=== PATIENT | female | born 1990 | race African-American/Black ===

== ENCOUNTER 2019-09-27 09:11 | Emergency (ER) | payer MEDICAID ==
[~2019-09-27] VITALS: Ht 160 cm; Wt 80.1 kg
[2019-09-27 10:03] LABS: MICROSCOPIC NOT IND
--- NOTE | 2019-09-27 10:17 | NUR ---
THIS IS A 29 YO FEMALE WHO PRESENTS TO THE ER C/O NAUSEA X 2 WEEKS WITH LOWER ABD CRAMPING AND BILAT BREAST SORENESS. PT REPROTS SHE IS 2.5 WEEKS LATE FOR HER PERIOD. PER PT, HER MENSTRUAL CYCLE IS IRREGULAR AND SHE CAN "SKIP MONTHS" BUT "I USUALLY DON'T HAVE ANY SYMPTOMS AND THAT'S HOW I KNOW I JUST WON'T HAVE ONE THAT MONTH". PT TOOK TWO NEG HOME TESTS. PT AO X 4. SKIN WARM AND DRY. RESP EVEN AND UNALBORED. PT CURRENTLY DENIES NAUSEA. BISI CISSE WAS AT BEDSIDE FOR EVAL. PT ON CONT BP AND O2 MONITORS. CALL LIGHT WITHIN REACH. WILL CONT TO MONITOR PT.
[2019-09-27 10:24] LABS: BASOPHILS # (AUTO) 0.03 x10^3/uL (0-0.1); BASOPHILS % (AUTO) 0 % (0-1); EOSINOPHILS # (AUTO) 0.17 x10^3/uL (0-0.4); EOSINOPHILS % (AUTO) 2 % (1-7); LYMPHOCYTES # (AUTO) 2.16 x10^3/uL (1-3.4); LYMPHOCYTES % (AUTO) 26 % (22-44); MD NO; MEAN CORPUSCULAR HEMOGLOBIN 33.1 pg (27.0-34.8); MEAN CORPUSCULAR HGB CONC 33.1 g/dL (32.4-35.8); MEAN CORPUSCULAR VOLUME 100.1 fL (80-100); MEAN PLATELET VOLUME 8.1 fL (7.4-10.4); MONOCYTES # (AUTO) 0.51 x10^3/uL (0.2-0.8); MONOCYTES % (AUTO) 6 % (2-9); NEUTROPHILS # (AUTO) 5.32 x10^3/uL (1.8-6.8); NEUTROPHILS % (AUTO) 65 % (42-75); PLATELET COUNT 235 x10^3/uL (130-400); RED BLOOD COUNT 4.22 x10^6/uL (3.82-5.3); RED CELL DISTRIBUTION WIDTH 12.6 % (9.6-15.2)
[2019-09-27 10:36] LABS: ALANINE AMINOTRANSFERASE 28 U/L (12-78); ALBUMIN 3.5 g/dL (3.4-5.0); ANION GAP 5 mmol/L (5-15); CALCIUM 8.8 mg/dL (8.5-10.1); CHLORIDE 111 mmol/L (98-107); CREATININE 0.89 mg/dL (0.55-1.02)
[2019-09-27 10:41] LABS: ALKALINE PHOSPHATASE 61 U/L (45-117); BILIRUBIN,TOTAL 0.2 mg/dL (0.2-1.0); TOTAL PROTEIN 7.5 g/dL (6.4-8.2)
--- NOTE | 2019-09-27 11:49 | NUR ---
PT CURRENTLY RESTING ON [employer]. NAD NOTED. PT CONT TO DENY N/V/D. PT AO X 4. SKIN WARM AND DRY. RESP EVEN AND UNLABORED. PT AWARE WE ARE WAITING ON RECHECK BY [employer] LAW. CALL LIGHT WITHIN REACH. WILL CONT TO MONITOR PT.
[2019-09-27 12:03] VITALS: BP 117/68
== END 2019-09-27 12:05 | disposition home or self-care (01) ==
LOC: ED 09:12
DX: R10.84 Generalized abdominal pain (principal); R11.0 Nausea; Z72.89 Other problems related to lifestyle
CPT/HCPCS: 36415; 80053; 81003; 83690; 84703; 85025; 99283